=== PATIENT | male | born 1965 | race Caucasian/White ===

== ENCOUNTER 2017-05-12 09:58 | Inpatient (IN) | payer OTHER ==
[2017-05-12] VITALS (10 sets, daily range): BP systolic 147–176; BP diastolic 72–87
[~2017-05-12] VITALS: Ht 182.9 cm; Wt 82.0 kg
[2017-05-12 12:03] LABS: APPEARANCE CLOUDY ((CLEAR)); COLOR RED ((YELLOW))
[2017-05-12 12:06] LABS: BILIRUBIN NEGATIVE; GLUCOSE (STRIP) NEGATIVE; KETONES NEGATIVE
[2017-05-12 12:07] LABS: BLOOD LARGE; PROTEIN (STRIP) 300; SPECIFIC GRAVITY 1.025 (1.000-1.030)
[2017-05-12 12:08] LABS: UROBILINOGEN 0.2 MG/DL (0.2-1.0)
[2017-05-12 12:10] LABS: INTER. NORMALIZED RATIO 1.3
[2017-05-12 12:10] LABS: RED BLOOD CELLS TNTC /HPF (0-5); UCUL ADDED? YES
[2017-05-12 12:13] LABS: PTT 26.7 SEC (25-37)
[2017-05-12 12:16] LABS: CHLORIDE 100 mEq/L (99-109); POTASSIUM 4.9 mEq/L (3.7-5.4); SODIUM 133 mEq/L (136-147)
[2017-05-12 12:17] LABS: GLUCOSE 123 mg/dL (70-99)
[2017-05-12 12:21] LABS: CREATININE 1.6 mg/dL (0.6-1.3); GFR ESTIMATE (CALCULATED) 48 mL/min/ (58.99-99999)
[2017-05-12 12:22] LABS: UREA NITROGEN (BUN) 27 mg/dL (9-23)
[2017-05-12 12:25] LABS: TROP-I INTERPRETATION NEGATIVE
[2017-05-12 12:36] LABS: BASOPHIL (%) 0.2 % (0-1); EOSINOPHIL (%) 0.2 % (0-5); IMMATURE GRANULOCYTE (%) 0.8 % (0.0-0.7); LYMPHOCYTE (%) 8.8 % (15-42); LYMPHOCYTE COUNT 1.2 K/uL (1.0-2.8); MCH 21.8 PG (29.0-34.0); MCHC 29.3 G/DL (30.0-36.0); MCV 74.5 FL (86-99); MONOCYTE (%) 7.5 % (3-12); NEUTROPHIL (%) 82.5 % (45-76); NEUTROPHIL COUNT 10.8 K/uL (1.8-6.4); NRBC (%) 0.6 /100 WBC (0-0); PLATELET COUNT 575 K/uL (156-360); RBC DIS.WIDTH-CV 17.1 % (11.8-14.6); RBC DIS.WIDTH-SD 46.8 % (39-53); RED BLOOD COUNT 1.88 M/uL (4.00-5.50); WHITE BLOOD COUNT 13.1 K/uL (4.1-10.2)
[2017-05-12 12:37] LABS: HEMOGLOBIN 4.1 G/DL (12.5-16.6)
[2017-05-12] MEDS ORDERED: ADVIL200 MG PO (12:56)
[2017-05-12] MEDS ORDERED: CENTRUM MEN'S1 EACH PO (12:56)
[2017-05-13] VITALS (13 sets, daily range): BP systolic 156–192; BP diastolic 79–99
[2017-05-13 05:12] LABS: HEMATOCRIT 25.1 % (38.0-50.0); MCH 25.3 PG (29.0-34.0); MCHC 32.3 G/DL (30.0-36.0); MCV 78.4 FL (86-99); PLATELET COUNT 456 K/uL (156-360); RBC DIS.WIDTH-CV 16.3 % (11.8-14.6); RBC DIS.WIDTH-SD 47.1 % (39-53); WHITE BLOOD COUNT 11.6 K/uL (4.1-10.2)
[2017-05-13 05:17] LABS: HEMOGLOBIN 8.1 G/DL (12.5-16.6)
[2017-05-13 05:36] LABS: CHLORIDE 99 MEQ/L (99-109); CREATININE 1.6 MG/DL (0.6-1.3); GFR ESTIMATE (CALCULATED) 48 mL/min/ (58.99-99999); GLUCOSE 107 mg/dL (70-99); POTASSIUM 4.5 MEQ/L (3.7-5.4); SODIUM 130 MEQ/L (136-147); UREA NITROGEN (BUN) 29 mg/dL (9-23)
[2017-05-13 08:56] LABS: ALBUMIN 3.1 G/DL (3.2-4.8); DIRECT BILIRUBIN 0.4 mg/dL (0.0-0.3); TOTAL BILIRUBIN 1.4 MG/DL (0.0-1.0)
[2017-05-13 09:01] LABS: ALKALINE PHOSPHATASE 44 IU/L (3-129); ALT (GPT) 17 IU/L (3-49); AST (GOT) 20 IU/L (2-34); TOTAL PROTEIN 4.9 G/DL (6.4-8.3)
[2017-05-13 11:22] LABS: HEMOGLOBIN A1c (GLYCOHEMOGLOB) 4.4 % (Below 5.7)
[2017-05-14] VITALS (7 sets, daily range): BP systolic 170–210; BP diastolic 62–100
[2017-05-14 05:45] LABS: BASOPHIL (%) 0.5 % (0-1); BASOPHIL COUNT 0.1 K/uL (0-0.1); EOSINOPHIL (%) 2.1 % (0-5); EOSINOPHIL COUNT 0.3 K/uL (0-0.3); HEMATOCRIT 31.8 % (38.0-50.0); IMMATURE GRANULOCYTE (%) 1.5 % (0.0-0.7); LYMPHOCYTE (%) 7.2 % (15-42); LYMPHOCYTE COUNT 1.1 K/uL (1.0-2.8); MCH 25.8 PG (29.0-34.0); MCHC 32.1 G/DL (30.0-36.0); MCV 80.3 FL (86-99); MONOCYTE (%) 8.6 % (3-12); MONOCYTE COUNT 1.3 K/uL (0-0.8); NEUTROPHIL (%) 80.1 % (45-76); NEUTROPHIL COUNT 12.1 K/uL (1.8-6.4); NRBC (%) 0.3 /100 WBC (0-0); PLATELET COUNT 539 K/uL (156-360); RBC DIS.WIDTH-CV 17.4 % (11.8-14.6); RBC DIS.WIDTH-SD 50.9 % (39-53)
[2017-05-14 05:47] LABS: HEMOGLOBIN 10.2 G/DL (12.5-16.6); RED BLOOD COUNT 3.96 M/uL (4.00-5.50)
[2017-05-14 06:04] LABS: ALKALINE PHOSPHATASE 45 IU/L (3-129); ALT (GPT) 21 IU/L (3-49); AST (GOT) 21 IU/L (2-34); CHLORIDE 102 MEQ/L (99-109); CREATININE 1.6 MG/DL (0.6-1.3); GFR ESTIMATE (CALCULATED) 48 mL/min/ (58.99-99999); GLUCOSE 104 mg/dL (70-99); MAGNESIUM 1.9 mg/dl (1.3-2.7); PHOSPHORUS 4.1 mg/dL (2.5-4.9); POTASSIUM 4.7 MEQ/L (3.7-5.4); SODIUM 133 MEQ/L (136-147); TOTAL PROTEIN 4.9 G/DL (6.4-8.3); UREA NITROGEN (BUN) 28 mg/dL (9-23); URIC ACID 7.9 mg/dL (3.1-9.2)
[2017-05-14 06:06] LABS: TOTAL BILIRUBIN 0.8 MG/DL (0.0-1.0)
[2017-05-14 08:22] LABS: INTACT PARATHYROID HORMONE 124 pg/mL (10-69)
[2017-05-15] VITALS (7 sets, daily range): BP systolic 132–165; BP diastolic 64–80
[2017-05-15 06:06] LABS: BASOPHIL (%) 0.1 % (0-1); EOSINOPHIL (%) 0 % (0-5); HEMATOCRIT 26.1 % (38.0-50.0); HEMOGLOBIN 8.4 G/DL (12.5-16.6); IMMATURE GRANULOCYTE (%) 1.2 % (0.0-0.7); LYMPHOCYTE (%) 4.6 % (15-42); LYMPHOCYTE COUNT 0.5 K/uL (1.0-2.8); MCH 26.5 PG (29.0-34.0); MCHC 32.2 G/DL (30.0-36.0); MCV 82.3 FL (86-99); MONOCYTE (%) 11.2 % (3-12); MONOCYTE COUNT 1.3 K/uL (0-0.8); NEUTROPHIL (%) 82.9 % (45-76); NEUTROPHIL COUNT 9.5 K/uL (1.8-6.4); NRBC (%) 0.2 /100 WBC (0-0); PLATELET COUNT 523 K/uL (156-360); RBC DIS.WIDTH-CV 18.6 % (11.8-14.6); RBC DIS.WIDTH-SD 56.6 % (39-53); RED BLOOD COUNT 3.17 M/uL (4.00-5.50); WHITE BLOOD COUNT 11.5 K/uL (4.1-10.2)
[2017-05-15 06:24] LABS: CHLORIDE 100 MEQ/L (99-109); CREATININE 1.8 MG/DL (0.6-1.3); GFR ESTIMATE (CALCULATED) 42 mL/min/ (58.99-99999); GLUCOSE 140 mg/dL (70-99); PHOSPHORUS 4.8 mg/dL (2.5-4.9); POTASSIUM 5.3 MEQ/L (3.7-5.4); SODIUM 130 MEQ/L (136-147); UREA NITROGEN (BUN) 29 mg/dL (9-23)
[2017-05-15 06:26] LABS: MAGNESIUM 2.2 mg/dl (1.3-2.7)
[2017-05-15 13:59] LABS: HEMATOCRIT 27.5 % (38.0-50.0); HEMOGLOBIN 8.5 G/DL (12.5-16.6); MCH 25.5 PG (29.0-34.0); MCHC 30.9 G/DL (30.0-36.0); MCV 82.6 FL (86-99); NRBC (%) 0.1 /100 WBC (0-0); PLATELET COUNT 553 K/uL (156-360); RBC DIS.WIDTH-CV 18.6 % (11.8-14.6); RBC DIS.WIDTH-SD 56.5 % (39-53); RED BLOOD COUNT 3.33 M/uL (4.00-5.50); WHITE BLOOD COUNT 13.3 K/uL (4.1-10.2)
[2017-05-16 04:54] VITALS: BP 164/73
[2017-05-16 05:25] LABS: BASOPHIL (%) 0.2 % (0-1); EOSINOPHIL (%) 1.5 % (0-5); EOSINOPHIL COUNT 0.1 K/uL (0-0.3); HEMATOCRIT 24.7 % (38.0-50.0); HEMOGLOBIN 7.8 G/DL (12.5-16.6); IMMATURE GRANULOCYTE (%) 1.1 % (0.0-0.7); LYMPHOCYTE (%) 10.6 % (15-42); MCH 25.7 PG (29.0-34.0); MCHC 31.6 G/DL (30.0-36.0); MCV 81.5 FL (86-99); MONOCYTE (%) 11.9 % (3-12); MONOCYTE COUNT 1.1 K/uL (0-0.8); NEUTROPHIL (%) 74.7 % (45-76); PLATELET COUNT 467 K/uL (156-360); RBC DIS.WIDTH-CV 19.1 % (11.8-14.6); RBC DIS.WIDTH-SD 56.9 % (39-53); RED BLOOD COUNT 3.03 M/uL (4.00-5.50); WHITE BLOOD COUNT 9.4 K/uL (4.1-10.2)
[2017-05-16 05:55] LABS: CHLORIDE 98 MEQ/L (99-109); CREATININE 1.8 MG/DL (0.6-1.3); GFR ESTIMATE (CALCULATED) 42 mL/min/ (58.99-99999); GLUCOSE 103 mg/dL (70-99); MAGNESIUM 2.3 mg/dl (1.3-2.7); PHOSPHORUS 5.5 mg/dL (2.5-4.9); POTASSIUM 5.2 MEQ/L (3.7-5.4); SODIUM 128 MEQ/L (136-147); UREA NITROGEN (BUN) 33 mg/dL (9-23)
[2017-05-16 08:43] VITALS: BP 185/90
[2017-05-16 12:00] VITALS: BP 148/75
[2017-05-16 13:03] LABS: HEMATOCRIT 25.4 % (38.0-50.0); HEMOGLOBIN 8.1 G/DL (12.5-16.6); MCH 26.2 PG (29.0-34.0); MCHC 31.9 G/DL (30.0-36.0); MCV 82.2 FL (86-99); PLATELET COUNT 430 K/uL (156-360); RBC DIS.WIDTH-CV 18.9 % (11.8-14.6); RBC DIS.WIDTH-SD 56.8 % (39-53); RED BLOOD COUNT 3.09 M/uL (4.00-5.50); WHITE BLOOD COUNT 8.3 K/uL (4.1-10.2)
[2017-05-16] MEDS ORDERED: AMLODIPINE BESY10 MG PO (13:48)
[2017-05-16] MEDS ORDERED: LABETALOL HCL200 MG PO (13:48)
[2017-05-16] MEDS ORDERED: APRESOLINE100 MG PO (13:48)
[2017-05-16] MEDS ORDERED: TYLENOL REGULA325 MG PO (13:48)
[2017-05-16] MEDS ORDERED: CENTRUM MEN'S1 EACH PO (15:24)
== END 2017-05-16 14:48 | disposition home or self-care (01) | DRG 669 ==
LOC: EME 09:58 → EDOF 13:21 → 4EAST 13:21 → ENRESERV 13:22 → 4EAST 18:08
PROVIDERS: Emergency Medicine; Internal Medicine; Internal Medicine Nephrology
PROC: 30233N1 Transfusion of Nonautologous Red Blood Cells into Peripheral Vein, Percutaneous Approach (ICD-10-PCS; 2017-05-12)
PROC: 0TBB8ZX Excision of Bladder, Via Natural or Artificial Opening Endoscopic, Diagnostic (ICD-10-PCS; principal; 2017-05-14)
DX: C67.8 Malignant neoplasm of overlapping sites of bladder (principal); D62 Acute posthemorrhagic anemia; N17.9 Acute kidney failure, unspecified; J98.11 Atelectasis; C79.19 Secondary malignant neoplasm of other urinary organs; N13.30 Unspecified hydronephrosis; C79.89 Secondary malignant neoplasm of other specified sites; C77.9 Secondary and unspecified malignant neoplasm of lymph node, unspecified; R31.0 Gross hematuria; N18.3 Chronic kidney disease, stage 3 (moderate); I12.9 Hypertensive chronic kidney disease with stage 1 through stage 4 chronic kidney disease, or unspecified chronic kidney disease; I16.0 Hypertensive urgency; D50.0 Iron deficiency anemia secondary to blood loss (chronic); N32.89 Other specified disorders of bladder; N13.5 Crossing vessel and stricture of ureter without hydronephrosis; T39.395A Adverse effect of other nonsteroidal anti-inflammatory drugs [NSAID], initial encounter; Z82.49 Family history of ischemic heart disease and other diseases of the circulatory system
CPT/HCPCS: 71045; 71250; 76770; 80048; 80053; 80076; 81003; 82570; 83036; 83735; 83970; 84100; 84156; 84484; 84550; 85025; 85027; 85610; 85730; 86850; 86900; 86901; 86920; 87086; 88305; 88307; 93005; 99281; 99285; J0131; J0330; J0690; J1100; J1170; J2250; J2405; J2710; J3010; J7030; P9016; P9040